=== PATIENT | female | born 1985 | race Asian ===

== ENCOUNTER 2019-09-11 13:59 | Observation (INO) ==
[2019-09-11] MEDS ORDERED: SODIUM CHLORIDE 0.9% 1000ML 1,000 ML IV SCH (14:45)
[2019-09-11 14:50] LABS: iSTAT Creatinine 0.9 mg/dl (0.6-1.3); iSTAT Hemoglobin 6.8 g/dl (12.0-16.0); iSTAT Ionized Calcium 1.17 mmol/l (1.12-1.32); iSTAT Potassium 3.7 mEq/L (3.3-5.0)
[2019-09-11] MEDS ORDERED: SODIUM CHLORIDE 0.9% 250 ML IV PRN ×2 (14:58→15:35)
--- NOTE | 2019-09-11 15:07 | Emergency Department Note ---
ED Provider Note CHIEF COMPLAINT: Fatigue, lightheaded, low hemoglobin HISTORY OF PRESENTING ILLNESS: This is a 34-year-old female with past medical history significant for endometrial polyps and fibroids, PCOS, and abnormal vaginal bleeding, who presents to the emergency department with complaint of feeling lightheaded and tired for the past week. She notes that she has been having constant daily vaginal bleeding for the past 2 months, she saw her RISK CONTROL OFFICER for this and was started on Elsa FE on 08/29. She states initially after starting the oral contraceptives her bleeding seemed to increase, but it has slowed down over the past several days and she is only using 1-2 pads a day. She denies any heavy bleeding or passing large clots. She denies any abdominal pain or cramping. She notes that she had her hemoglobin checked at the end of July and it was 8.5, today she had her level checked at [facility] and it was 5.8, which has dropped over the past 3 weeks. She denies any shortness of breath or chest pain, palpitations, headache, or syncope. She has not had a blood transfusion before. She does not believe she is . She denies any blood thinner medications or history of bleeding disorders. REVIEW OF SYSTEMS: A complete 10 point review of systems was reviewed with the patient with pertinent positives and negatives as per history of present illness. All else were negative. PAST MEDICAL HISTORY: PCOS, uterine fibroids, endometrial polyps, D&C SOCIAL HISTORY: Lives at home, she denies tobacco use ALLERGIES: No known allergies PHYSICAL EXAM: CONSTITUTIONAL: Pleasant and cooperative. Nontoxic-appearing and in no acute distress. Pale appearing and mildly dehydrated. HEENT: Normocephalic, atraumatic. PERRL, EOMI, pale conjunctiva. Pharynx normal. Tacky mucous membranes. NECK: Supple, full active range of motion without discomfort. RESPIRATORY: Clear to auscultation bilaterally with no wheezing, crackles, rhonchi or stridor. Equal expansion bilaterally. CARDIOVASCULAR: Regular rate and rhythm with no murmurs, rubs or gallops. Normal peripheral perfusion, 2+ distal pulses in all 4 extremities. No pitting edema. GASTROINTESTINAL: Soft, nontender, nondistended. No palpable masses or HSM. Bowel sounds present in all quadrants. MUSCULOSKELETAL: Full range of motion of all joints without discomfort. INTEGUMENTARY: No rash or other significant dermatologic conditions noted. NEUROLOGIC: Alert and oriented X 4 with normal affect. Normal strength and sensation in all 4 extremities. Normal speech. Normal gait observed. ED COURSE AND MEDICAL DECISION MAKING: CC: Patient presenting with complaint of fatigue, lightheaded, low hemoglobin DIFFERENTIAL DIAGNOSIS: Includes, but not limited to acute anemia, dehydration, electrolyte abnormality, abnormal vaginal bleeding, among others. INTERPRETATION OF LABS: No leukocytosis, acute anemia, normal platelets, no significant electrolyte abnormalities, normal renal function, normal liver enzymes. Serum negative. Coagulation factors within normal limits. UA positive for blood, no infection. Blood type O+. MEDICATION RECONCILIATION: I attest that I have personally reviewed the patient's current medication list. INITIAL VITAL SIGNS REVIEW: I reviewed the patient's initial vital signs and interpret them as follows: T: Afebrile; BP: Normotensive; HR: Mildly tachycardic; RR: Within normal limits; Pulse Ox: Within normal limits on room air. Blood pressure screening: The patient was found to have normal blood pressure on screening and does not require follow-up for repeat blood pressure check. MDM SUMMARY: Patient was evaluated at bedside, history and physical exam performed. Patient is alert and oriented, in no acute distress, resting calmly in stretcher. She is nontoxic-appearing and afebrile, but does appear pale and mildly dehydrated. No abdominal tenderness to palpation. She reports that her vaginal bleeding has slowed down significantly, I did not feel that a pelvic exam is necessary at this time. Orders were placed at bedside for labs including CBC, CMP, coagulation factors, serum , type and screen to evaluate for anemia. Patient discussed with Dr. Noriega, who agrees with my assessment, plan, and disposition. Labs reviewed as above, hemoglobin is notably low at 6.0. She is not . I spoke on the phone with Dr. Townsend, RISK CONTROL OFFICER, who agrees to bring the patient into the hospital for her blood transfusions and requested crossmatch for 2 units, this was ordered. Blood transfusion consent was performed and signed by the patient, placed on the patient's chart. Patient reassessed multiple times throughout ED stay, she has remained hemodynamically stable and afebrile. The patient was updated on all results and plan for stay in the hospital for blood transfusion, she verbalized understanding and was agreeable to this plan. The patient was stable at time of admission. The chart was completed utilizing [employer] Speech voice recognition software. Grammatical errors, random word insertions, pronoun errors, and incomplete sentences are an occasional consequence of this system due to software limitations, ambient noise, and hardware issues. Any formal questions or concerns about the content, text, or information contained within the body of this dictation should be directly addressed to the nurse practitioner for clarification. Impression & Plan Symptomatic anemia, History of irregular menstrual cycles, Dysfunctional ut erine bleeding Past Med/Surg History Medical History (Updated 09/11/19 @ 22:36 by YAMILEX Sexton) History of chicken pox History of torn meniscus of left knee Hypothyroidism Menorrhagia Symptomatic anemia (Acute) Surgical History (Updated 08/29/19 @ 11:18 by Edie Palacios) History of hysterosalpingogram S/P dilation and curettage S/P wisdom tooth extraction Family History (Updated 08/29/19 @ 11:18 by Edie Palacios) Aunt Breast cancer maternal aunt Social History (Updated 08/29/19 @ 11:17 by Edie Palacios) Preferred Language: Bulgarian Communication Ability: Effective Solvent 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 Required: No Beliefs That Will Affect Care: None Current Living Situation: Spouse Feels Safe at Home: Yes Smoking Status: Never smoker Second Hand Exposure: No ; Hx Alcohol Use: No Hx Substance Use: No Results & Data Vital Signs Vital Signs - 24 hr 09/11/19 14:02 09/11/19 14:46 09/11/19 15:00 Temperature 36.8 C Temperature Source Oral Pulse Rate 99 H 88 Pulse Rate from SpO2 Sensor 90 Respiratory Rate 16 12 Respiratory Effort / Characteristics Non-Labored Respiratory Depth Normal Blood Pressure 124/62 118/69 Blood Pressure Mean 82 93 Pulse Oximetry 100 99 100 Oxygen Delivery Method Room Air Room Air Room Air Sepsis Recent Fever Within 48 Hours No Sepsis New/Unexplained Change in Mental Status No Sepsis Action Taken by Nursing No Action Required 09/11/19 15:19 09/11/19 15:30 09/11/19 15:31 Temperature Temperature Source Pulse Rate 93 H 90 97 H Pulse Rate from SpO2 Sensor 93 H 87 95 H Respiratory Rate 17 24 24 Respiratory Effort / Characteristics Respiratory Depth Blood Pressure 110/67 Blood Pressure Mean 74 Pulse Oximetry 100 91 95 Oxygen Delivery Method Room Air Room Air Room Air Sepsis Recent Fever Within 48 Hours Sepsis New/Unexplained Change in Mental Status Sepsis Action Taken by Nursing Laboratory Data Result diagrams: 09/11/19 14:28 09/11/19 14:28 Lab Results 09/11/19 09/11/19 09/11/19 Range/Units 14:28 14:28 14:28 WBC 5.62 (4.8-10.8) K/uL RBC 2.93 L (4.2-5.4) M/uL Hgb 6.0 L* (12.0-16.0) g/dL POC Hgb (12.0-16.0) g/dl Hct 20.7 L* (37-47) % POC Hct (37-47) % MCV 70.6 L (80-100) fL MCH 20.5 L (25-34) pg MCHC 29.0 L (32-36) g/dL RDW Std Deviation 48.2 H (36.4-46.3) fL RDW Coeff of Ivet 18.7 H (11.5-14.5) % Plt Count 384 (130-400) K/uL MPV 8.8 (7.4-10.4) fL Immature Gran % (Auto) 0.5 % Neut % (Auto) 67.4 % Lymph % (Auto) 21.4 % Benzie % (Auto) 9.8 % Eos % (Auto) 0.5 % Baso % (Auto) 0.4 % Immature Gran # (Auto) 0.03 H (0.00-0.02) K/uL Neut # (Auto) 3.79 (1.4-6.5) K/uL Lymph # (Auto) 1.20 (1.2-3.4) K/uL Benzie # (Auto) 0.55 (0.11-0.59) K/uL Eos # (Auto) 0.03 (0-0.5) K/uL Baso # (Auto) 0.02 (0-0.2) K/uL Absolute Nucleated RBC 0.08 H (0-0) K/uL Nucleated RBC % (auto) 1.4 % Hypochromasia Present Ovalocytes 1+ PT 9.8 (9.0-12.0) Seconds INR 1.0 (0.9-1.1) APTT 22.0 (21.0-31.0) Seconds PTT Ratio 0.8 POC Sodium (135-144) mEq/L Sodium (136-145) mmol/L POC Potassium (3.3-5.0) mEq/L Potassium (3.5-5.1) mmol/L POC Chloride (101-112) mEq/L Chloride (98-107) mmol/L Carbon Dioxide (21-32) mmol/L POC Total CO2 (24-31) mEq/l Anion Gap (3-11) POC Anion Gap (16-25) mmol/L POC BUN (7-18) mg/dl BUN (7-18) mg/dl Creatinine (0.6-1.2) mg/dl POC Creatinine (0.6-1.3) mg/dl Est Cr Clr Drug Dosing ml/min Est GFR ( Amer) Est GFR (Non-Af Amer) BUN/Creatinine Ratio (10-20) Glucose (70-99) mg/dl POC Glucose (other) (70-99) mg/dl Calcium (8.5-10.1) mg/dl POC Ioniz Calcium Patrick (1.12-1.32) mmol/l Total Bilirubin (0.2-1) mg/dl AST (15-37) U/L ALT (12-78) U/L Alkaline Phosphatase (45-117) U/L Total Protein (6.4-8.2) gm/dl Albumin (3.4-5.0) gm/dl Globulin (2.5-4.0) gm/dl Albumin/Globulin Ratio (0.9-2) HCG, Qual (Negative) Urine Color Urine Appearance (Clear) Urine pH (4.5-7.5) Ur Specific [place] (1.000-1.060) Urine Protein (Negative) Urine Glucose (UA) (Negative) Urine Ketones (Negative) Urine Blood (Negative) Urine Nitrite (Negative) Urine Bilirubin (Negative) Urine Urobilinogen (Negative) Ur Leukocyte Esterase (Negative) Urine RBC (0-4) /hpf Urine WBC (0-5) /hpf Ur Epithelial Cells (0-5) /lpf Urine Bacteria (Negative) Blood Type O Positive Antibody Screen NEGATIVE Crossmatch See Detail 09/11/19 09/11/19 09/11/19 Range/Units 14:28 14:36 15:16 WBC (4.8-10.8) K/uL RBC (4.2-5.4) M/uL Hgb (12.0-16.0) g/dL POC Hgb 6.8 L* (12.0-16.0) g/dl Hct (37-47) % POC Hct 20 L* (37-47) % MCV (80-100) fL MCH (25-34) pg MCHC (32-36) g/dL RDW Std Deviation (36.4-46.3) fL RDW Coeff of Ivet (11.5-14.5) % Plt Count (130-400) K/uL MPV (7.4-10.4) fL Immature Gran % (Auto) % Neut % (Auto) % Lymph % (Auto) % Benzie % (Auto) % Eos % (Auto) % Baso % (Auto) % Immature Gran # (Auto) (0.00-0.02) K/uL Neut # (Auto) (1.4-6.5) K/uL Lymph # (Auto) (1.2-3.4) K/uL Benzie # (Auto) (0.11-0.59) K/uL Eos # (Auto) (0-0.5) K/uL Baso # (Auto) (0-0.2) K/uL Absolute Nucleated RBC (0-0) K/uL Nucleated RBC % (auto) % Hypochromasia Ovalocytes PT (9.0-12.0) Seconds INR (0.9-1.1) APTT (21.0-31.0) Seconds PTT Ratio POC Sodium 138 (135-144) mEq/L Sodium 137 (136-145) mmol/L POC Potassium 3.7 (3.3-5.0) mEq/L Potassium 3.6 (3.5-5.1) mmol/L POC Chloride 103 (101-112) mEq/L Chloride 105 (98-107) mmol/L Carbon Dioxide 25 (21-32) mmol/L POC Total CO2 25 (24-31) mEq/l Anion Gap 8.0 (3-11) POC Anion Gap 15.0 L (16-25) mmol/L POC BUN 10 (7-18) mg/dl BUN 11 (7-18) mg/dl Creatinine 0.90 (0.6-1.2) mg/dl POC Creatinine 0.9 (0.6-1.3) mg/dl Est Cr Clr Drug Dosing 98.2 ml/min Est GFR ( Amer) 98.1 Est GFR (Non-Af Amer) 84.6 BUN/Creatinine Ratio 11.6 (10-20) Glucose 101 H (70-99) mg/dl POC Glucose (other) 105 H (70-99) mg/dl Calcium 8.9 (8.5-10.1) mg/dl POC Ioniz Calcium Patrick 1.17 (1.12-1.32) mmol/l Total Bilirubin 0.3 (0.2-1) mg/dl AST 18 (15-37) U/L ALT 36 (12-78) U/L Alkaline Phosphatase 48 (45-117) U/L Total Protein 8.2 (6.4-8.2) gm/dl Albumin 4.0 (3.4-5.0) gm/dl Globulin 4.2 H (2.5-4.0) gm/dl Albumin/Globulin Ratio 1.0 (0.9-2) HCG, Qual (Negative) Urine Color Yellow Urine Appearance Clear (Clear) Urine pH 6.5 (4.5-7.5) Ur Specific [place] 1.006 (1.000-1.060) Urine Protein Negative (Negative) Urine Glucose (UA) Negative (Negative) Urine Ketones Negative (Negative) Urine Blood 2+ H (Negative) Urine Nitrite Negative (Negative) Urine Bilirubin Negative (Negative) Urine Urobilinogen Negative (Negative) Ur Leukocyte Esterase Negative (Negative) Urine RBC 5-10 H (0-4) /hpf Urine WBC 0-5 (0-5) /hpf Ur Epithelial Cells 0-5 (0-5) /lpf Urine Bacteria 1+ H (Negative) Blood Type Antibody Screen Crossmatch 09/11/19 Range/Units 15:21 WBC (4.8-10.8) K/uL RBC (4.2-5.4) M/uL Hgb (12.0-16.0) g/dL POC Hgb (12.0-16.0) g/dl Hct (37-47) % POC Hct (37-47) % MCV (80-100) fL MCH (25-34) pg MCHC (32-36) g/dL RDW Std Deviation (36.4-46.3) fL RDW Coeff of Ivet (11.5-14.5) % Plt Count (130-400) K/uL MPV (7.4-10.4) fL Immature Gran % (Auto) % Neut % (Auto) % Lymph % (Auto) % Benzie % (Auto) % Eos % (Auto) % Baso % (Auto) % Immature Gran # (Auto) (0.00-0.02) K/uL Neut # (Auto) (1.4-6.5) K/uL Lymph # (Auto) (1.2-3.4) K/uL Benzie # (Auto) (0.11-0.59) K/uL Eos # (Auto) (0-0.5) K/uL Baso # (Auto) (0-0.2) K/uL Absolute Nucleated RBC (0-0) K/uL Nucleated RBC % (auto) % Hypochromasia Ovalocytes PT (9.0-12.0) Seconds INR (0.9-1.1) APTT (21.0-31.0) Seconds PTT Ratio POC Sodium (135-144) mEq/L Sodium (136-145) mmol/L POC Potassium (3.3-5.0) mEq/L Potassium (3.5-5.1) mmol/L POC Chloride (101-112) mEq/L Chloride (98-107) mmol/L Carbon Dioxide (21-32) mmol/L POC Total CO2 (24-31) mEq/l Anion Gap (3-11) POC Anion Gap (16-25) mmol/L POC BUN (7-18) mg/dl BUN (7-18) mg/dl Creatinine (0.6-1.2) mg/dl POC Creatinine (0.6-1.3) mg/dl Est Cr Clr Drug Dosing ml/min Est GFR ( Amer) Est GFR (Non-Af Amer) BUN/Creatinine Ratio (10-20) Glucose (70-99) mg/dl POC Glucose (other) (70-99) mg/dl Calcium (8.5-10.1) mg/dl POC Ioniz Calcium Patrick (1.12-1.32) mmol/l Total Bilirubin (0.2-1) mg/dl AST (15-37) U/L ALT (12-78) U/L Alkaline Phosphatase (45-117) U/L Total Protein (6.4-8.2) gm/dl Albumin (3.4-5.0) gm/dl Globulin (2.5-4.0) gm/dl Albumin/Globulin Ratio (0.9-2) HCG, Qual Negative (Negative) Urine Color Urine Appearance (Clear) Urine pH (4.5-7.5) Ur Specific [place] (1.000-1.060) Urine Protein (Negative) Urine Glucose (UA) (Negative) Urine Ketones (Negative) Urine Blood (Negative) Urine Nitrite (Negative) Urine Bilirubin (Negative) Urine Urobilinogen (Negative) Ur Leukocyte Esterase (Negative) Urine RBC (0-4) /hpf Urine WBC (0-5) /hpf Ur Epithelial Cells (0-5) /lpf Urine Bacteria (Negative) Blood Type Antibody Screen Crossmatch Administered Medications Miscellaneous (Order Awaiting Action) 1 ea N/A QS TRAVON Stop: 10/11/19 17:29 Last Admin: 09/11/19 18:53 Dose: Not Given Documented by: [id number] Discontinued Medications Acetaminophen (Tylenol) 650 mg PO Q4H PRN PRN Reason: Pain or Fever Stop: 09/11/19 23:59 Last Admin: 09/11/19 17:28 Dose: 650 mg Documented by: [id number] Diphenhydramine HCl (Benadryl) 25 mg IV NOW STA Stop: 09/11/19 15:36 Last Admin: 09/11/19 17:31 Dose: 25 mg Documented by: [id number] Sodium Chloride (Nss 1000ml) 1,000 mls @ 999 mls/hr IV .Q1H1M TRAVON Stop: 09/11/19 15:45 Last Infusion: 09/11/19 15:47 Dose: 0 mls/hr Documented by: [id number] Admin: 09/11/19 14:46 Dose: 999 mls/hr Documented by: [id number] Discharge Plan Visit Data *Final* Discharge Date/Time: 09/11/19 17:04 Chief Complaint: Abnormal Labs/Diagnostic Testing Stated Complaint: ANEMIC - ABNORMAL LABS ED Provider: Destinee Noriega ED Midlevel Provider: Radha Sheets Discharge Problem: Symptomatic anemia, History of irregular menstrual cycles, Dysfunctional uterine bleeding Patient Disposition: Admitted As Inpatient Condition: Good Discharge Instructions Interventions: ED Discharge Assessment Last Done: 09/11/19 17:04
[2019-09-11 15:17] LABS: Hematocrit (blood only) 20.7 % (37-47); Mean Corpuscular Hemoglobin 20.5 pg (25-34); Mean Corpuscular Volume 70.6 fL (80-100); Mean Platelet Volume 8.8 fL (7.4-10.4); Nucleated RBC # (auto) 0.08 K/uL (0-0); Nucleated RBC % (auto) 1.4 %; Platelet Count 384 K/uL (130-400); RDW Coefficient of Variation 18.7 % (11.5-14.5); RDW Standard Deviation 48.2 fL (36.4-46.3); Red Blood Count 2.93 M/uL (4.2-5.4); White Blood Count 5.62 K/uL (4.8-10.8)
[2019-09-11 15:22] LABS: BUN Creatinine Ratio 11.6 (10-20); Calcium 8.9 mg/dl (8.5-10.1); Creatinine Clr Calc Pharmacy 98.2 ml/min; Est GFR (African American) 98.1; Est GFR (Non-African American) 84.6; Potassium 3.6 mmol/L (3.5-5.1)
[2019-09-11 15:25] LABS: Bilirubin,Total 0.3 mg/dl (0.2-1); Globulin 4.2 gm/dl (2.5-4.0); Total Protein 8.2 gm/dl (6.4-8.2)
[2019-09-11 15:30] LABS: Partial Thromboplastin Ratio 0.8; Prothrombin Time 9.8 Seconds (9.0-12.0)
[2019-09-11] MEDS ORDERED: DiphenhydrAMINE HCL 50 MG/ML VIAL IV STA (15:35)
[2019-09-11] MEDS ORDERED: ACETAMINOPHEN 325 MG TAB PO PRN (15:35)
[2019-09-11 15:39] LABS: Appearance Urine Clear (Clear); Bilirubin Urine Negative (Negative); Blood Urine 2+ (Negative); Color Urine Yellow; Glucose Urine UA Negative (Negative); Ketones Urine Negative (Negative); Leukocyte Esterase Urine Negative (Negative); Nitrite Urine Negative (Negative); Protein Urine Negative (Negative); Urobilinogen Urine Negative (Negative); pH Urine 6.5 (4.5-7.5)
[2019-09-11 15:44] LABS: Basophils # (auto) 0.02 K/uL (0-0.2); Basophils % (auto) 0.4 %; Eosinophils # (auto) 0.03 K/uL (0-0.5); Eosinophils % (auto) 0.5 %; Hypochromasia Present; Immature Granulocytes # (auto) 0.03 K/uL (0.00-0.02); Immature Granulocytes % (auto) 0.5 %; Lymphocytes % (auto) 21.4 %; Monocytes # (auto) 0.55 K/uL (0.11-0.59); Monocytes % (auto) 9.8 %; Neutrophils # (auto) 3.79 K/uL (1.4-6.5); Neutrophils % (auto) 67.4 %; Ovalocytes 1+
--- NOTE | 2019-09-11 15:46 | History & Physical Report ---
Date of Service September 11, 2019 Assessment & Plan (1) Symptomatic anemia: Source of blood loss (menorrhagia) is successfully being addressed, but patient has acute symptomatic anemia for which we will admit and transfuse 2u pRBC and recheck H&H in the AM for planned discharge home. 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 History of Present Illness Chief Complaint: dizziness Primary Care Provider: Destinee Allen 34yo female presented to [facility] this morning with dizziness, nausea, and lightheadedness. Was checked for POC Hgb, found to be in 5s, sent to ER. On arrival she is hemodynamically stable but symptomatic with dizziness when seated upright, better when resting supine. No CP, SOB. Does have a known ongoing issue with menorrhagia for which she was recently started on JAZMIN, and recent diagnosis if hypothyroidism with TSH >20 for which she started synthroid. VB has decreased significantly to one pad per day, so the source of her blood loss is both known and addressed, but she had already lost enough blood that we now need to transfuse. Patient was verbally reconsented for transfusion; already signed consent with ER staff. Allergies Allergy/AdvReac Type Severity Reaction Status Date / Time No Known Allergies Allergy Verified 09/11/19 14:54 Home Medications Home Medications Medication Instructions Recorded Confirmed Type acetaminophen [Tylenol Extra 500 mg PO Q6H PRN 09/11/19 09/11/19 History Strength] levothyroxine 100 mcg PO QAM 09/11/19 09/11/19 History norethindrone-e.estradiol-iron 1 tab PO HS 09/11/19 09/11/19 History [ ()] Past Med/Surg History Medical History (Updated 09/11/19 @ 15:45 by Miya Townsend MD) History of chicken pox History of torn meniscus of left knee Hypothyroidism Menorrhagia Symptomatic anemia Surgical History (Updated 08/29/19 @ 11:18 by Edie Palacios) History of hysterosalpingogram S/P dilation and curettage S/P wisdom tooth extraction Family History (Updated 08/29/19 @ 11:18 by Edie Palacios) Aunt Breast cancer maternal aunt Social History (Updated 08/29/19 @ 11:17 by Edie Palacios) Feels Safe at Home: Yes Smoking Status: Never smoker Hx Alcohol Use: No Hx Substance Use: No Physical Exam Constitutional: + frail appearing Pale compared to my recent visit with her in office. Supine, and gets dizzy / tachy if tries to rise. Eyes: PERRL, conjunctivae normal, anicteric sclerae ENMT: external ear and nose normal, oropharynx normal Neck: trachea midline, no thyromegaly Respiratory: normal respiratory effort, lungs clear to auscultation Cardiovascular: RRR, no murmur, no edema Musculoskeletal: no cyanosis or clubbing, extremities motor strength 5/5 Psychiatric: A+Ox3, euthymic affect Results & Data Vital Signs (Past 12 Hours) Vital Signs Temp Pulse Resp BP Pulse Ox 09/11/19 15:00 88 12 118/69 100 09/11/19 14:46 99 09/11/19 14:02 98.2 F 99 H 16 124/62 100 Laboratory Results Laboratory Results - last 24 hr 09/11/19 09/11/19 09/11/19 14:28 14:28 14:28 WBC 5.62 RBC 2.93 L Hgb 6.0 L* POC Hgb Hct 20.7 L* POC Hct MCV 70.6 L MCH 20.5 L MCHC 29.0 L RDW Std Deviation 48.2 H RDW Coeff of Ivet 18.7 H Plt Count 384 MPV 8.8 Absolute Nucleated RBC 0.08 H Nucleated RBC % (auto) 1.4 PT 9.8 INR 1.0 APTT 22.0 PTT Ratio 0.8 POC Sodium Sodium POC Potassium Potassium POC Chloride Chloride Carbon Dioxide POC Total CO2 Anion Gap POC Anion Gap POC BUN BUN Creatinine POC Creatinine Est Cr Clr Drug Dosing Est GFR ( Amer) Est GFR (Non-Af Amer) BUN/Creatinine Ratio Glucose POC Glucose (other) Calcium POC Ioniz Calcium Patrick Total Bilirubin AST ALT Alkaline Phosphatase Total Protein Albumin Globulin Albumin/Globulin Ratio HCG, Qual Urine Color Urine Appearance Urine pH Ur Specific [place] Urine Protein Urine Glucose (UA) Urine Ketones Urine Blood Urine Nitrite Urine Bilirubin Urine Urobilinogen Ur Leukocyte Esterase Blood Type Pending Antibody Screen Pending Crossmatch See Detail 09/11/19 09/11/19 09/11/19 14:28 14:36 15:16 WBC RBC Hgb POC Hgb 6.8 L* Hct POC Hct 20 L* MCV MCH MCHC RDW Std Deviation RDW Coeff of Ivet Plt Count MPV Absolute Nucleated RBC Nucleated RBC % (auto) PT INR APTT PTT Ratio POC Sodium 138 Sodium 137 POC Potassium 3.7 Potassium 3.6 POC Chloride 103 Chloride 105 Carbon Dioxide 25 POC Total CO2 25 Anion Gap 8.0 POC Anion Gap 15.0 L POC BUN 10 BUN 11 Creatinine 0.90 POC Creatinine 0.9 Est Cr Clr Drug Dosing 98.2 Est GFR ( Amer) 98.1 Est GFR (Non-Af Amer) 84.6 BUN/Creatinine Ratio 11.6 Glucose 101 H POC Glucose (other) 105 H Calcium 8.9 POC Ioniz Calcium Patrick 1.17 Total Bilirubin 0.3 AST 18 ALT 36 Alkaline Phosphatase 48 Total Protein 8.2 Albumin 4.0 Globulin 4.2 H Albumin/Globulin Ratio 1.0 HCG, Qual Urine Color Pending Urine Appearance Pending Urine pH Pending Ur Specific [place] Pending Urine Protein Pending Urine Glucose (UA) Pending Urine Ketones Pending Urine Blood Pending Urine Nitrite Pending Urine Bilirubin Pending Urine Urobilinogen Pending Ur Leukocyte Esterase Pending Blood Type Antibody Screen Crossmatch 09/11/19 15:21 WBC RBC Hgb POC Hgb Hct POC Hct MCV MCH MCHC RDW Std Deviation RDW Coeff of Ivet Plt Count MPV Absolute Nucleated RBC Nucleated RBC % (auto) PT INR APTT PTT Ratio POC Sodium Sodium POC Potassium Potassium POC Chloride Chloride Carbon Dioxide POC Total CO2 Anion Gap POC Anion Gap POC BUN BUN Creatinine POC Creatinine Est Cr Clr Drug Dosing Est GFR ( Amer) Est GFR (Non-Af Amer) BUN/Creatinine Ratio Glucose POC Glucose (other) Calcium POC Ioniz Calcium Patrick Total Bilirubin AST ALT Alkaline Phosphatase Total Protein Albumin Globulin Albumin/Globulin Ratio HCG, Qual Pending Urine Color Urine Appearance Urine pH Ur Specific [place] Urine Protein Urine Glucose (UA) Urine Ketones Urine Blood Urine Nitrite Urine Bilirubin Urine Urobilinogen Ur Leukocyte Esterase Blood Type Antibody Screen Crossmatch Code Status & VTE Plan VTE Prophylaxis Plan VTE Prophylaxis will be ordered: Yes PG Care Time/CCT Total # of Minutes Spent Total Time Spent with Patient: Total time spent is greater than 50% in coordination of care (as documented) at patient's floor/unit and/or counseling patient:
[2019-09-11 16:33] LABS: Pregnancy Test, Serum Negative (Negative)
[2019-09-11 16:41] LABS: Specific Gravity Urine 1.006 (1.000-1.060)
[2019-09-11 17:01] LABS: WBC Urine 0-5 /hpf (0-5)
[2019-09-11 17:02] LABS: Bacteria Urine 1+ (Negative); Epithelial Cell Urine 0-5 /lpf (0-5)
[2019-09-11] MEDS ORDERED: ACETAMINOPHEN 500 MG TAB PO PRN (17:18)
[2019-09-12] MEDS ORDERED: LEVOTHYROXINE SODIUM 100 MCG TABLET PO SCH (06:30)
[2019-09-12 06:38] LABS: Hematocrit (blood only) 26.3 % (37-47); Hemoglobin 8.1 g/dL (12.0-16.0)
--- NOTE | 2019-09-12 07:15 | Obstetrical Progress Note ---
Date of Service September 12, 2019 Assessment & Plan (1) Symptomatic anemia: Improved s/p 2u pRBC with appropriate hgb rise, will dischage to home with out patient management of hypothyroidsm and DUB to continue per plan. Subjective Looks and feels much better this morning - good color, sitting up, eating, smiling, energetic. No dizziness, no CP, no SOB. Physical Exam Constitutional: WD/WN, vitals as above healthy appearing Eyes: PERRL, conjunctivae normal, anicteric sclerae ENMT: external ear and nose normal, oropharynx normal Neck: trachea midline, no thyromegaly Respiratory: normal respiratory effort, lungs clear to auscultation Cardiovascular: RRR, no murmur, no edema Skin: no rashes, warm and dry Neurologic: patellar DTR's 2+ bilat, sensation intact Psychiatric: A+Ox3, euthymic affect Results & Data Vital Signs (Past 12 Hours) Vital Signs Temp Pulse Pulse Resp BP BP Pulse Ox 09/12/19 03:20 98.4 F 83 18 100/66 98 09/12/19 00:00 98.8 F 93 H 20 110/72 98 09/11/19 23:30 98.6 F 96 H 18 111/75 98 09/11/19 22:30 97.3 F L 90 20 110/73 98 09/11/19 22:00 97.3 F L 91 H 20 101/67 98 09/11/19 21:30 98.6 F 86 19 110/71 98 09/11/19 21:15 98.8 F 90 20 108/69 98 09/11/19 20:30 97.7 F 91 H 20 113/72 99 09/11/19 19:35 99.1 F 93 H 93 H 18 110/71 110/71 100 Laboratory Results Laboratory Results - last 24 hr 09/11/19 09/11/19 09/11/19 14:28 14:28 14:28 WBC 5.62 RBC 2.93 L Hgb 6.0 L* POC Hgb Hct 20.7 L* POC Hct MCV 70.6 L MCH 20.5 L MCHC 29.0 L RDW Std Deviation 48.2 H RDW Coeff of Ivet 18.7 H Plt Count 384 MPV 8.8 Immature Gran % (Auto) 0.5 Neut % (Auto) 67.4 Lymph % (Auto) 21.4 [place] % (Auto) 9.8 Eos % (Auto) 0.5 Baso % (Auto) 0.4 Immature Gran # (Auto) 0.03 H Neut # (Auto) 3.79 Lymph # (Auto) 1.20 [place] # (Auto) 0.55 Eos # (Auto) 0.03 Baso # (Auto) 0.02 Absolute Nucleated RBC 0.08 H Nucleated RBC % (auto) 1.4 Hypochromasia Present Ovalocytes 1+ PT 9.8 INR 1.0 APTT 22.0 PTT Ratio 0.8 POC Sodium Sodium POC Potassium Potassium POC Chloride Chloride Carbon Dioxide POC Total CO2 Anion Gap POC Anion Gap POC BUN BUN Creatinine POC Creatinine Est Cr Clr Drug Dosing Est GFR ( Amer) Est GFR (Non-Af Amer) BUN/Creatinine Ratio Glucose POC Glucose (other) Calcium POC Ioniz Calcium Patrick Total Bilirubin AST ALT Alkaline Phosphatase Total Protein Albumin Globulin Albumin/Globulin Ratio HCG, Qual Urine Color Urine Appearance Urine pH Ur Specific [place] Urine Protein Urine Glucose (UA) Urine Ketones Urine Blood Urine Nitrite Urine Bilirubin Urine Urobilinogen Ur Leukocyte Esterase Urine RBC Urine WBC Ur Epithelial Cells Urine Bacteria Blood Type O Positive Blood Type Recheck Antibody Screen NEGATIVE Crossmatch See Detail 09/11/19 09/11/19 09/11/19 14:28 14:36 15:16 WBC RBC Hgb POC Hgb 6.8 L* Hct POC Hct 20 L* MCV MCH MCHC RDW Std Deviation RDW Coeff of Ivet Plt Count MPV Immature Gran % (Auto) Neut % (Auto) Lymph % (Auto) [place] % (Auto) Eos % (Auto) Baso % (Auto) Immature Gran # (Auto) Neut # (Auto) Lymph # (Auto) [place] # (Auto) Eos # (Auto) Baso # (Auto) Absolute Nucleated RBC Nucleated RBC % (auto) Hypochromasia Ovalocytes PT INR APTT PTT Ratio POC Sodium 138 Sodium 137 POC Potassium 3.7 Potassium 3.6 POC Chloride 103 Chloride 105 Carbon Dioxide 25 POC Total CO2 25 Anion Gap 8.0 POC Anion Gap 15.0 L POC BUN 10 BUN 11 Creatinine 0.90 POC Creatinine 0.9 Est Cr Clr Drug Dosing 98.2 Est GFR ( Amer) 98.1 Est GFR (Non-Af Amer) 84.6 BUN/Creatinine Ratio 11.6 Glucose 101 H POC Glucose (other) 105 H Calcium 8.9 POC Ioniz Calcium Patrick 1.17 Total Bilirubin 0.3 AST 18 ALT 36 Alkaline Phosphatase 48 Total Protein 8.2 Albumin 4.0 Globulin 4.2 H Albumin/Globulin Ratio 1.0 HCG, Qual Urine Color Yellow Urine Appearance Clear Urine pH 6.5 Ur Specific [place] 1.006 Urine Protein Negative Urine Glucose (UA) Negative Urine Ketones Negative Urine Blood 2+ H Urine Nitrite Negative Urine Bilirubin Negative Urine Urobilinogen Negative Ur Leukocyte Esterase Negative Urine RBC 5-10 H Urine WBC 0-5 Ur Epithelial Cells 0-5 Urine Bacteria 1+ H Blood Type Blood Type Recheck Antibody Screen Crossmatch 09/11/19 09/11/19 09/12/19 15:21 15:52 06:11 WBC RBC Hgb 8.1 L POC Hgb Hct 26.3 L POC Hct MCV MCH MCHC RDW Std Deviation RDW Coeff of Ivet Plt Count MPV Immature Gran % (Auto) Neut % (Auto) Lymph % (Auto) [place] % (Auto) Eos % (Auto) Baso % (Auto) Immature Gran # (Auto) Neut # (Auto) Lymph # (Auto) [place] # (Auto) Eos # (Auto) Baso # (Auto) Absolute Nucleated RBC Nucleated RBC % (auto) Hypochromasia Ovalocytes PT INR APTT PTT Ratio POC Sodium Sodium POC Potassium Potassium POC Chloride Chloride Carbon Dioxide POC Total CO2 Anion Gap POC Anion Gap POC BUN BUN Creatinine POC Creatinine Est Cr Clr Drug Dosing Est GFR ( Amer) Est GFR (Non-Af Amer) BUN/Creatinine Ratio Glucose POC Glucose (other) Calcium POC Ioniz Calcium Patrick Total Bilirubin AST ALT Alkaline Phosphatase Total Protein Albumin Globulin Albumin/Globulin Ratio HCG, Qual Negative Urine Color Urine Appearance Urine pH Ur Specific [place] Urine Protein Urine Glucose (UA) Urine Ketones Urine Blood Urine Nitrite Urine Bilirubin Urine Urobilinogen Ur Leukocyte Esterase Urine RBC Urine WBC Ur Epithelial Cells Urine Bacteria Blood Type Blood Type Recheck O Positive Antibody Screen Crossmatch PG Care Time/CCT Total # of Minutes Spent Total Time Spent with Patient: Total time spent is greater than 50% in coordination of care (as documented) at patient's floor/unit and/or counseling patient:
[2019-09-12] MEDS ORDERED: INFLUENZA VIRUS QUAD VACCINE 0.5 ML SYR IM ONE (08:00)
[2019-09-12] MEDS ORDERED: INFLUENZA ADMINISTRATION CHARGE ONE (08:00)
--- NOTE | 2019-09-15 15:11 | Discharge Summary ---
Date of Service September 15, 2019 Admission HPI Per Admitting Provider 34yo female with symptomatic anemia due to menorrhagia. Bleeding had already been stopped by JAZMIN and synthroid at the time of admission, but Hgb was critically low and needed correction by transfusion. Discharge Data Consultations 09/11/19 14:58 ED Decision to Admit Stat Hospital Course (1) Symptomatic anemia: Transfused 2u pRBC with appropriate rise in Hgb and symptomatic relief. For outpatient f/u as planned with [facility].
== END 2019-09-12 09:30 | disposition home or self-care (01) ==
LOC: ED 13:59 → 4S2 13:59

== ENCOUNTER 2020-01-31 10:37 | Inpatient (IN) ==
[2020-01-31] MEDS ORDERED: SODIUM CHLORIDE 0.9% 1000ML 1,000 ML IV SCH (11:30)
--- NOTE | 2020-01-31 11:35 | Emergency Department Note ---
Impression & Plan Tachycardia, Weakness, Vaginal bleeding, Dizziness, Anemia ED Provider Note NAME: NAPOLEON SALVADOR AGE: 34 SEX: F : 1985 ARRIVES VIA: Walk-In INFORMANT: [Patient] ED PROVIDER(S): [Chuckie Shafer MD] CHIEF COMPLAINT: Vaginal bleeding HISTORY OF PRESENT ILLNESS: The patient is a 34-year-old female presents with vaginal bleeding for the last 8 days. She initially had some pelvic cramping but this has vanished. The patient was here in this ED 2 days ago and her hemoglobin was in the 7 range. The patient states that since leaving the ED, the amount of bleeding has decreased from 1 pad every 2 hours to 1 pad every 4 hours. Patient states that she has noticed some faster heart rate when she walks and some slight shortness of breath. She has a headache when she stands up that resolves when she sits down. The headache is an 8/10 and mostly on the left side of the head. There has been some nausea, she has been dizzy. No vomiting, no fainting. She has n ot had fever or cough or congestion. She states that lying flat makes her feel like she has a pressure on her chest, this pressure has been present for 2 days, the pressure is mild and resolves with some elevation of her head. The patient is scheduled for a D&C 15 February. She was referred to the ED today by her OB doctor. Of note, she did see OB yesterday in the outpatient office. REVIEW OF SYSTEMS: See HPI for pertinent positives and negatives. A total of ten systems were reviewed and were otherwise negative. PMHx/PSHx: See Below SOCIAL HISTORY: See Below. PHYSICAL EXAM: GENERAL: Patient is in no acute distress. HEENT: No acute trauma, normocephalic atraumatic, mucous membranes moist, no nasal congestion, no scleral icterus. NECK: No stridor, no adenopathy, no meningismus, trachea is midline. LUNGS: Clear to auscultation bilaterally, no wheeze, no rhonchi, breath sounds equal. HEART: Mildly tachycardic, regular rhythm, no murmurs. ABDOMEN: Soft, nontender, bowel sounds positive, no hernias, no peritonitis. EXTREMITIES: No cyanosis or edema, full range of motion of all the joints without pain or difficulty, no signs for acute trauma. NEUROLOGIC: Oriented x 3, no acute motor or sensory deficits, no focal weakness. SKIN: No rash, no jaundice, no diaphoresis. Vaginal: Deferred. DIFFERENTIAL DIAGNOSIS: Etiologies such as threatened AB, miscarriage, ectopic , dysfunction uterine bleeding, bleeding dyscrasia, trauma, infection, as well as others were entertained. EMERGENCY DEPARTMENT COURSE/PROCEDURES: Critical Care Note: I have personally spent greater than 36 minutes of critical care time in the direct management of this patient. This includes bedside care, interpretation of diagnostic studies, and testing, discussion with consultants, patient, and family members, and other required patient management activities. This 36 minutes is in excess of all separately billable procedures. MEDICAL DECISION MAKING: There is no leukocytosis. The patient is anemic with a hemoglobin of 7, this is a drop from just a few days ago. Platelet count was normal. No coagulopathy. No significant electrolyte abnormality or kidney failure. testing was negative. Blood type was O+. Chest film did not show pneumonia or CHF. On my exam, the patient was slightly tachycardic, there was no abdominal/pelvic pain by exam. The patient received IV saline, 1 L. She was ordered for 1 unit of packed red blood cells to be transfused in the ED. Consent was signed. The patient presents with tachycardia, dizziness, weakness. She has vaginal bleeding and is actually scheduled for a D&C in the near future. A pelvic exam was not performed as the cause of her issue is already known. I did speak with [facility], they are going to hospitalize the patient for blood products and potentially do her D&C procedure emergently. She does not seem like she is going to able to wait until February 15. Patient is aware of all her findings, she did consent as noted above to the blood transfusion. She is currently resting comfortably. Past Med/Surg History Medical History Cardiac murmur in August and no further follow-up required Zay's disease (Chronic) History of blood transfusion History of chicken pox History of tear of ACL (anterior cruciate ligament) Left History of torn meniscus of left knee Infertility PCOS (polycystic ovarian syndrome) Symptomatic anemia Tachycardia r/t anemia Uterine myoma Uterine polyp Vaginal bleeding between periods Surgical History History of hysterosalpingogram S/P dilation and curettage S/P wisdom tooth extraction Family History Aunt Breast cancer maternal aunt Mother Hypertension Father Hypertension Denies family history of Ovarian cancer Colorectal cancer Uterine cancer Social History Preferred Language: Togolese Communication Ability: Effective 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 Beliefs That Will Affect Care: None Current Living Situation: Spouse Other Information That Helps Us Care for You: No Feels Safe at Home: Yes Smoking Status: Never smoker Do You Dip or Chew Tobacco: No ; Second Hand Exposure: No ; Hx Alcohol Use: No Hx Substance Use: No Allergies Allergies Allergy/AdvReac Type Severity Reaction Status Date / Time No Known Allergies Allergy Verified 01/31/20 11:45 Home Meds Home Medications Medication Instructions Recorded Confirmed ascorbic acid (vitamin C) [Vitamin 500 mg PO DAILY@1430 01/29/20 01/31/20 C] ferrous sulfate [High Potency Iron] 27 mg PO BID 01/29/20 01/31/20 levothyroxine 125 mcg PO QAM 01/29/20 01/31/20 norethindrone-e.estradiol-iron 1 tab PO HS 01/29/20 01/31/20 [Elsa Fe 1.5/30 (28)] Results & Data (ED) Vital Signs Vital Signs - 24 hr 01/31/20 10:46 01/31/20 11:25 01/31/20 11:27 Temperature 36.8 C Temperature Source Oral Pulse Rate 105 H 102 H 99 H Pulse Rate [Apical] 103 H Pulse Rate from SpO2 Sensor 104 H 98 H Pulse Rhythm [Apical] Regular Pulse Strength [Apical] Normal Respiratory Rate 16 24 24 Respiratory Effort / Characteristics Non-Labored Respiratory Depth Normal Respiratory Pattern Regular Blood Pressure 121/78 117/75 Blood Pressure [Right Arm] 117/75 Blood Pressure Mean 92 89 Blood Pressure Mean [Right Arm] 89 Blood Pressure Position [Right Arm] Lying Pulse Oximetry 99 98 97 Oxygen Delivery Method Room Air Room Air Sepsis Recent Fever Within 48 Hours No Sepsis New/Unexplained Change in Mental Status No Sepsis Action Taken by Nursing No Action Required 01/31/20 11:30 01/31/20 12:00 01/31/20 12:30 Temperature Temperature Source Pulse Rate 95 H 94 H 91 H Pulse Rate [Apical] Pulse Rate from SpO2 Sensor 93 H 94 H 91 H Pulse Rhythm [Apical] Pulse Strength [Apical] Respiratory Rate 19 23 22 Respiratory Effort / Characteristics Respiratory Depth Respiratory Pattern Blood Pressure 115/70 123/72 107/80 Blood Pressure [Right Arm] Blood Pressure Mean 86 77 94 Blood Pressure Mean [Right Arm] Blood Pressure Position [Right Arm] Pulse Oximetry 97 100 100 Oxygen Delivery Method Sepsis Recent Fever Within 48 Hours Sepsis New/Unexplained Change in Mental Status Sepsis Action Taken by Nursing 01/31/20 12:31 Temperature Temperature Source Pulse Rate 97 H Pulse Rate [Apical] Pulse Rate from SpO2 Sensor 97 H Pulse Rhythm [Apical] Pulse Strength [Apical] Respiratory Rate 19 Respiratory Effort / Characteristics Respiratory Depth Respiratory Pattern Blood Pressure Blood Pressure [Right Arm] Blood Pressure Mean Blood Pressure Mean [Right Arm] Blood Pressure Position [Right Arm] Pulse Oximetry 100 Oxygen Delivery Method Sepsis Recent Fever Within 48 Hours Sepsis New/Unexplained Change in Mental Status Sepsis Action Taken by [facility] Medications Current Medication List: was personally reviewed by me Laboratory Data Attestation: I reviewed the patient's lab results. Result diagrams: 01/31/20 11:41 01/31/20 11:41 Lab Results 01/31/20 01/31/20 01/31/20 Range/Units 11:41 11:41 11:41 WBC (4.8-10.8) K/uL RBC (4.2-5.4) M/uL Hgb (12.0-16.0) g/dL Hct (37-47) % MCV (80-100) fL MCH (25-34) pg MCHC (32-36) g/dL RDW Std Deviation (36.4-46.3) fL RDW Coeff of Ivet (11.5-14.5) % Plt Count (130-400) K/uL MPV (7.4-10.4) fL Absolute Nucleated RBC (0-0) K/uL Nucleated RBC % (auto) % PT 10.2 (9.0-12.0) Seconds INR 1.0 (0.9-1.1) APTT 23.2 (21.0-31.0) Seconds PTT Ratio 0.8 Sodium 138 (136-145) mmol/L Potassium 3.9 (3.5-5.1) mmol/L Chloride 109 H (98-107) mmol/L Carbon Dioxide 23 (21-32) mmol/L Anion Gap 6.0 (3-11) BUN 6 L (7-18) mg/dl Creatinine 0.69 (0.6-1.2) mg/dl Est Cr Clr Drug Dosing 125.6 ml/min Est GFR ( Amer) 133.5 Est GFR (Non-Af Amer) 115.2 BUN/Creatinine Ratio 8.2 L (10-20) Glucose 96 (70-99) mg/dl Calcium 8.3 L (8.5-10.1) mg/dl HCG, Qual (Negative) Blood Type O Positive Antibody Screen NEGATIVE Crossmatch See Detail 01/31/20 01/31/20 Range/Units 11:41 11:41 WBC 7.27 (4.8-10.8) K/uL RBC 2.25 L (4.2-5.4) M/uL Hgb 7.0 L (12.0-16.0) g/dL Hct 22.0 L (37-47) % MCV 97.8 (80-100) fL MCH 31.1 (25-34) pg MCHC 31.8 L (32-36) g/dL RDW Std Deviation 47.0 H (36.4-46.3) fL RDW Coeff of Ivet 17.1 H (11.5-14.5) % Plt Count 338 (130-400) K/uL MPV 8.8 (7.4-10.4) fL Absolute Nucleated RBC 0.30 H (0-0) K/uL Nucleated RBC % (auto) 4.2 % PT (9.0-12.0) Seconds INR (0.9-1.1) APTT (21.0-31.0) Seconds PTT Ratio Sodium (136-145) mmol/L Potassium (3.5-5.1) mmol/L Chloride (98-107) mmol/L Carbon Dioxide (21-32) mmol/L Anion Gap (3-11) BUN (7-18) mg/dl Creatinine (0.6-1.2) mg/dl Est Cr Clr Drug Dosing ml/min Est GFR ( Amer) Est GFR (Non-Af Amer) BUN/Creatinine Ratio (10-20) Glucose (70-99) mg/dl Calcium (8.5-10.1) mg/dl HCG, Qual Negative (Negative) Blood Type Antibody Screen Crossmatch Administered Medications Acetaminophen (Tylenol) 650 mg PO Q4H PRN PRN Reason: Pain or Fever Stop: 03/01/20 12:37 Last Admin: 01/31/20 14:27 Dose: 650 mg Documented by: [id number] Discontinued Medications Sodium Chloride (Nss 1000ml) 1,000 mls @ 999 mls/hr IV .Q1H1M TRAVON Stop: 01/31/20 12:30 Last Infusion: 01/31/20 12:48 Dose: 0 mls/hr Documented by: [id number] Admin: 01/31/20 11:48 Dose: 999 mls/hr Documented by: [id number] Imaging Data Radiologist's Impression: XR chest 1V portable CLINICAL HISTORY: 34 years-old Female presenting with sob, cp. TECHNIQUE: Portable upright AP view of the chest was obtained. COMPARISON: None. FINDINGS: Cardiomediastinal silhouette normal. No focal opacity. No large effusion or pneumothorax. Osseous structures normal. Upper abdomen normal. IMPRESSION: 1. No acute cardiopulmonary disease. Blood Pressure Blood Pressure Findings: Normal blood pressure Discharge Plan Visit Data *Final* Discharge Date/Time: 01/31/20 13:58 Chief Complaint: Vaginal Bleeding Stated Complaint: VAGINAL BLEEDING,HEART RACING,HEADACHE ED Provider: Chuckie Shafer Discharge Problem: Tachycardia, Weakness, Vaginal bleeding, Dizziness, Anemia Patient Disposition: Admitted As Inpatient Condition: Fair Discharge Instructions Interventions: ED Discharge Assessment Last Done: 01/31/20 13:58 Discharge Problem: Anemia Qualifiers: Anemia type: unspecified type Qualified Code(s): D64.9 - Anemia, unspecified
[2020-01-31 11:53] LABS: Mean Corpuscular Hemoglobin 31.1 pg (25-34); Mean Corpuscular Hgb Conc 31.8 g/dL (32-36); Mean Corpuscular Volume 97.8 fL (80-100); Mean Platelet Volume 8.8 fL (7.4-10.4); Nucleated RBC % (auto) 4.2 %; Platelet Count 338 K/uL (130-400); RDW Coefficient of Variation 17.1 % (11.5-14.5); Red Blood Count 2.25 M/uL (4.2-5.4); White Blood Count 7.27 K/uL (4.8-10.8)
--- NOTE | 2020-01-31 12:05 | XRay Report ---
XR chest 1V portable CLINICAL HISTORY: 34 years-old Female presenting with sob, cp. TECHNIQUE: Portable upright AP view of the chest was obtained. COMPARISON: None. FINDINGS: Cardiomediastinal silhouette normal. No focal opacity. No large effusion or pneumothorax. Osseous str uctures normal. Upper abdomen normal. IMPRESSION: 1. No acute cardiopulmonary disease. ACT 112: Negative or not required by law. Electronically signed by: Raghu Mg M.D. 01/31/2020 12:04 PM
[2020-01-31 12:08] LABS: Pregnancy Test, Serum Negative (Negative)
[2020-01-31 12:09] LABS: BUN Creatinine Ratio 8.2 (10-20); Calcium 8.3 mg/dl (8.5-10.1); Creatinine Clr Calc Pharmacy 125.6 ml/min; Est GFR (African American) 133.5; Est GFR (Non-African American) 115.2; Potassium 3.9 mmol/L (3.5-5.1)
[2020-01-31 12:10] LABS: Partial Thromboplastin Ratio 0.8; Partial Thromboplastin Time 23.2 Seconds (21.0-31.0); Prothrombin Time 10.2 Seconds (9.0-12.0)
[2020-01-31] MEDS ORDERED: SODIUM CHLORIDE 0.9% 250 ML IV PRN ×2 (12:31→17:35)
[2020-01-31] MEDS ORDERED: ACETAMINOPHEN 325 MG TAB PO PRN (12:38)
--- NOTE | 2020-01-31 12:45 | Communication Note ---
Date of Service: January 31, 2020 Patient well known to myself, discussed with Dr. Chuckie Shafer of ER. She presented to ER for the second time this week with worsening symptoms of acute blood loss anemia, and drop in Hgb from 7.6 to 7 is noted along with tachycardia. She will be directly admitted to my service now, and plan is for 2u pRBC to be transfused (order to be placed / transfusion begun in ER per Dr. Shafer). We will check a f/u H&H and start NPO at midnight, then do the D&C tomorrow instead of next week as previously scheduled. This is not Priskmiles's first blood transfusion, and she is failing outpatient management with hormonal manipulation. It is evident that she cannot wait any longer and is in need of the procedure to prevent further use of blood bank materials and/or risking morbidity or mortality.
--- NOTE | 2020-01-31 16:38 | History & Physical Report ---
Date of Service January 31, 2020 Assessment & Plan (1) Uterine polyp: Emergency D&C Hysteroscopy for tomorrow. This patient has multiple admissions for transfusion and is failing outpatient management of menorrhagia. She needs an emergent procedure to stop her bleeding and avoid morbidity / mo rtality. Procedure moved from 02/15 to 01/31. She will be NPO after midnight for this purpose. (2) Acute blood loss anemia: Blood loss is slowed, but not stopped, by the use of COCs. She continues on these however the ultimate solution to her bleeding will involve tomorrow's procedure. For now she is being managed with 2u pRBC transfusion to improve her Hgb and resolve her tachycardia / orthostasis. History of Present Illness Chief Complaint: Tachycardia, fatigue Primary Care Provider: Destinee Allen 34yo patient known to me for menorrhagia. She has PCOS now managed with COCs, Hypothyroidism now managed with levothyroxine, and uterine polyps for which a D&C was scheduled on 02/15. However the patient is now presenting for the second time with symptomatic anemia due to ongoing uterine blood loss, and it is evident she cannot wait until 02/15 for her scheduled procedure. She is admitted now for 2u pRBC and for a planned emergency D&C tomorrow to hopefully stop her bleeding. Feeling improved already on the partial transfusion she has already received. Allergies Allergy/AdvReac Type Severity Reaction Status Date / Time No Known Allergies Allergy Verified 01/31/20 11:45 Home Medications Home Medications Medication Instructions Recorded Confirmed Type ascorbic acid (vitamin C) [Vitamin 500 mg PO DAILY@1430 01/29/20 01/31/20 History C] ferrous sulfate [High Potency Iron] 27 mg PO BID 01/29/20 01/31/20 History levothyroxine 125 mcg PO QAM 01/29/20 01/31/20 History norethindrone-e.estradiol-iron 1 tab PO HS 01/29/20 01/31/20 History [Elsa Fe 1.530 (28)] Patient History Medical History Cardiac murmur in August and no further follow-up required Zay's disease (Chronic) History of blood transfusion History of chicken pox History of tear of ACL (anterior cruciate ligament) Left History of torn meniscus of left knee Infertility PCOS (polycystic ovarian syndrome) Symptomatic anemia Tachycardia r/t anemia Uterine myoma Uterine polyp Vaginal bleeding between periods Surgical History History of hysterosalpingogram S/P dilation and curettage S/P wisdom tooth extraction Family History Aunt Breast cancer maternal aunt Mother Hypertension Father Hypertension Denies family history of Ovarian cancer Colorectal cancer Uterine cancer Social History Preferred Language: German Communication Ability: Effective 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 Beliefs That Will Affect Care: None Current Living Situation: Spouse Other Information That Helps Us Care for You: No Feels Safe at Home: Yes Smoking Status: Never smoker Do You Dip or Chew Tobacco: No ; Second Hand Exposure: No ; Hx Alcohol Use: No Hx Substance Use: No Physical Exam Constitutional: WD/WN, vitals as above Eyes: PERRL, conjunctivae normal, anicteric sclerae ENMT: external ear and nose normal, oropharynx normal Neck: trachea midline, no thyromegaly Respiratory: normal respiratory effort and able to speak in complete sentence s; no respiratory distress, no labored breathing and does not use accessory muscles Cardiovascular: Rate/Rhythm: regular rate and regular rhythm Extremities: normal capillary refill; no pedal edema Gastrointestinal (Abdomen): Inspection/Auscultation: abdomen normal to inspection; abdomen not distended Percussion/Palpation: abdomen soft; abdomen nontender, no hernia and no abdominal mass Rectal Exam: normal visual inspection of rectum; no hemorrhoids Musculoskeletal: no cyanosis or clubbing, extremities motor strength 5/5 Skin: no rashes, warm and dry Neurologic: normal touch/pain/proprioception Speech / Cognition: normal speech Motor/Sensory: normal movement Psychiatric: Orientation: alert and oriented x 3 Apperance: appropriately groomed and appeared stated age Eye Contact: good eye contact Motor Behavior: no abnormal motor movements Speech: normal rate/rhythm/volume of speech Affect: euthymic affect Lymphatic: no axillary lymphadenopathy and no inguinal lymphadenopathy Results & Data Vital Signs (Past 12 Hours) Vital Signs Temp Pulse Pulse Resp BP BP BP 01/31/20 16:02 98.2 F 94 H 18 117/69 01/31/20 15:05 98.2 F 102 H 20 106/74 01/31/20 14:35 97.9 F 94 H 18 116/77 01/31/20 14:03 98.1 F 92 H 92 H 18 107/72 107/72 01/31/20 13:48 98.6 F 91 H 15 114/78 01/31/20 13:33 98.1 F 95 H 18 112/7 L 01/31/20 13:00 93 H 18 104/61 01/31/20 12:31 97 H 19 01/31/20 12:30 91 H 22 107/80 01/31/20 12:00 94 H 23 123/72 01/31/20 11:30 95 H 19 115/70 01/31/20 11:27 99 H 24 01/31/20 11:25 102 H 103 H 24 117/75 117/75 01/31/20 10:46 98.2 F 105 H 16 121/78 Pulse Ox 01/31/20 16:02 100 01/31/20 15:05 100 01/31/20 14:35 98 01/31/20 14:03 100 01/31/20 13:48 01/31/20 13:33 99 01/31/20 13:00 100 01/31/20 12:31 100 01/31/20 12:30 100 01/31/20 12:00 100 01/31/20 11:30 97 01/31/20 11:27 97 01/31/20 11:25 98 01/31/20 10:46 99 Code Status & VTE Plan VTE Prophylaxis Plan VTE Prophylaxis will be ordered: Yes Coding Level of Care Code 15691 Initial Inpt Care Lvl 3 Diagnoses Uterine polyp N84.0 Acute blood loss anemia D62
[2020-01-31] MEDS: ORAL CONTRACEPTIVE: ORDER AWAITING ACTION SCH (21:47)
[2020-01-31] MEDS: SODIUM CHLORIDE 0.9% 1000ML 1,000 ML IV SCH (23:29)
[2020-02-01] MEDS: ORAL CONTRACEPTIVE: ORDER AWAITING ACTION SCH
[2020-02-01 00:24] LABS: Hematocrit (blood only) 30.1 % (37-47); Hemoglobin 9.6 g/dL (12.0-16.0)
[2020-02-01] MEDS ORDERED: SODIUM CHLORIDE 0.9% 1000ML 1,000 ML IV SCH (06:00)
[2020-02-01] MEDS ORDERED: LEVOTHYROXINE SODIUM 125 MCG TABLET PO SCH (06:30)
[2020-02-01] MEDS: SODIUM CHLORIDE 0.9% 1000ML 1,000 ML IV SCH (07:30)
--- NOTE | 2020-02-01 10:48 | History & Physical Bridge Note ---
Date of Service February 01, 2020 History & Physical Bridge Note I have examined the patient, reviewed the History & Physical and in the interval since the performance of the History & Physical I have noted the following changes of clinical significance: no changes noted
--- NOTE | 2020-02-01 10:57 | Anesthesiology Consultation ---
Date of Service February 01, 2020 Assessment & Plan (1) Encounter for pre-operative examination: Chart Review Chart Review: Acceptable Risk for Surgery Consults Requested none ASA ASA2 Proposed Anesthesia Anesthesia Type: General Risk / Benefits Reviewed With: PT / POA / Parent / Guardian, Accepts Plan and Informed Consent Obtained History Surgery Operation Date: 02/01/20 11:35 Proposed Procedures p Dilation and Curettage, - Miya Townsend MD s Hysteroscopy, Possible Polypectomy - Miya Townsend MD Height/Weight Height: 5 ft 6 in Weight: 83.461 kg Allergies Allergy/AdvReac Type Severity Reaction Status Date / Time No Known Allergies Allergy Verified 01/31/20 11:45 Medications Home Medications Medication Instructions Recorded Confirmed Last Taken High Potency Iron 27 mg PO BID 01/29/20 01/31/20 01/28/20 ascorbic acid (vitamin C) [Vitamin 500 mg PO DAILY@1430 01/29/20 01/31/20 01/28/20 C] levothyroxine 125 mcg PO QAM 01/29/20 01/31/20 01/31/20 norethindrone-e.estradiol-iron 1 tab PO HS 01/29/20 01/31/20 01/28/20 [Elsa Fe 1.5/30 (28)] Active Medications Generic Name Dose Route Start Last Admin Trade Name Freq PRN Reason Stop Dose Admin Acetaminophen 650 mg 01/31/20 12:38 01/31/20 14:27 Tylenol PO 03/01/20 12:37 650 mg Q4H PRN Administration Pain or Fever Sodium Chloride 1,000 mls @ 125 mls/hr 02/01/20 00:00 02/01/20 07:30 Nss 1000ml IV 03/02/20 00:00 125 mls/hr .Q8H TRAVON Administration Levothyroxine Sodium 125 mcg 02/01/20 06:30 02/01/20 06:06 Synthroid PO 03/02/20 06:29 125 mcg DAILYBB TRAVON Administration Miscellaneous 1 ea 01/31/20 16:00 02/01/20 00:00 Order Awaiting Action N/A 03/01/20 15:59 Not Given QS TRAVON NPO Date Last Intake of Fluids: 01/31/20 Time Last Intake of Fluids: 23:50 Date Last Intake of Solids: 01/31/20 Time Last Intake of Solids: 23:00 Past Medical History Medical History Cardiac murmur in August and no further follow-up required Zay's disease (Chronic) History of blood transfusion History of chicken pox History of tear of ACL (anterior cruciate ligament) Left History of torn meniscus of left knee Infertility PCOS (polycystic ovarian syndrome) Symptomatic anemia Tachycardia r/t anemia Uterine myoma Uterine polyp Vaginal bleeding between periods Exercise / Class Metabolic Activity II 4-5 Yardwork/Stairs/Walk up hill Past Family History Family History Aunt Breast cancer maternal aunt Mother Hypertension Father Hypertension Denies family history of Ovarian cancer Colorectal cancer Uterine cancer Past Surgical History Surgical History History of hysterosalpingogram S/P dilation and curettage S/P wisdom tooth extraction Past Anesthesia History No Hx of Anesthesia Complications and No Family Hx of Anesthesia Complications History of PONV No Hx of PONV and No Hx of Motion Sickness Social History Smoking Status: Never smoker Do You Dip or Chew Tobacco: No Hx Alcohol Use: No Hx Substance Use: No substance use type: does not use Physical Exam Vital Signs Last Vital Signs Temp 98.6 F 02/01/20 12:10 Pulse 107 H 02/01/20 12:10 Resp 20 02/01/20 12:10 BP 133/77 02/01/20 12:10 Pulse Ox 100 02/01/20 12:10 ENMT Mouth: no dentition abnormality Thyromental Distance: > or= 3.5 Finger Breadths Mallampati Class: II Neck normal visual inspection Respiratory normal respiratory effort Auscultation: lungs clear to auscultation bilaterally Cardiovascular Rate/Rhythm: regular rate and regular rhythm Testing Laboratory Results 02/01/20 00:13 01/31/20 11:41 PT 10.2 Seconds (9.0-12.0) 01/31/20 11:41 INR 1.0 (0.9-1.1) 01/31/20 11:41 APTT 23.2 Seconds (21.0-31.0) 01/31/20 11:41 Blood Type O Positive 01/31/20 11:41 Antibody Screen NEGATIVE 01/31/20 11:41 Electrocardiogram Date: 01/29/20 Sinus tachycardia, rate 116 bpm Otherwise normal ECG No previous ECGs available Confirmed by Cy Aponte ([id number]) on 01/29/2020 3:06:48 PM Chest X-Ray Date: 01/31/20 Findings: + NAD
[2020-02-01] MEDS ORDERED: ePHEDrine sulfate 50 MG/ML AMP IV PRN (12:24)
[2020-02-01] MEDS ORDERED: ONDANSETRON INJ 2 MG/ML 2 ML VIAL IV PRN ×2 (12:24→13:45)
[2020-02-01] MEDS ORDERED: LIDOCAINE HCL 2% 2 ML VIAL/AMP(20MG/ML) INFIL ONE (12:24)
[2020-02-01] MEDS ORDERED: ATROPINE SULFATE 0.1 MG/ML 10ML SYR IV PRN (12:24)
[2020-02-01] MEDS ORDERED: PROPOFOL IV EMULSION 10 MG/ML 20 ML VIAL IV ONE (12:24)
[2020-02-01] MEDS ORDERED: fentaNYL citrate 100 MCG/2 ML VIAL ONE ×3 (12:25→14:29)
[2020-02-01] MEDS ORDERED: MIDAZOLAM HCL 1 MG/ML 2ML VIAL ONE (12:25)
[2020-02-01] MEDS ORDERED: ONDANSETRON INJ 2 MG/ML 2 ML VIAL ONE (13:19)
[2020-02-01] MEDS ORDERED: DEXAMETHASONE SOD INJ 4 MG/ML VIAL ONE (13:19)
[2020-02-01] MEDS ORDERED: OXYCODONE/ACETAMINOPHEN 5mg/325mg TAB PO PRN ×2 (13:45)
[2020-02-01] MEDS ORDERED: METOCLOPRAMIDE HCL INJ 5 MG/ML 2 ML VIAL IV PRN (13:45)
[2020-02-01] MEDS ORDERED: IBUPROFEN 600 MG TAB PO PRN (13:45)
--- NOTE | 2020-02-01 13:45 | Operative Report ---
[facility] Post Operative Report Pre & Post Diagnosis Operation Date: 02/01/20 11:35 Pre-Op Diagnosis: VAGINAL BLEEDING, Hypothyroidism, PCOS, Endometrial Polyps, ACUTE BLOOD LOSS ANEMIA Post-Op Diagnosis: As above plus concerning appearance of endometrium. I identified the patient and participated in the time-out.: Yes Procedure Operation Date: 02/01/20 11:35 Actual Procedures p Dilation and Curettage, Hysteroscopy(Not Applicable) - Miya Townsend MD Surgeon Miya Townsend MD Ticketing Agent None Estimated Blood Loss 100 Findings See Below Specimens Endometrial curettings Anesthesia Type General Complications none Disposition Accompanied Patient To Recovery: Yes Disposition: Recovery Room Description of Procedure The patient was placed on the table in dorsal lithotomy with candy cane stirrups, prepped and draped in standard sterile fashion, and a hard time out was taken. Pelvic exam was performed. The bladder was emptied of urine via straight catheterization. Weighted and bird specula were used to visualize the cervix, which was grasped upon its anterior lip with a single tooth tenaculum. The uterus was sounded to 9.5cm. Serial Foy dilators were then used to gently open the cervix until passage of a 5mm hysteroscope was possible. The hysteroscope was placed and the uterine cavity with fallopian tube ostia was visualized. Findings included no defined polyp; instead a diffusely fluffy, papillary, vascular appearance to the endometrium was seen. White fragments of likely calcium were present throughout and a trabeculated, honeycomb-type appearance was present in some areas as well. This papillary vascular tissue was seen to fill nearly the entire cavity. The hysteroscope was withdrawn. A sharp curettage was carried out retrieving significant amounts of endometrium. The scope was then gently replaced and significant tissue was seen to remain in the cavity. A polyp forcep was used to gather some of the larger fragments of endometrium, and a sharp curette was then used again and cry was able to be obtained on all bishop. The scope was replaced, and after significant irrigation and suction due to bleeding from the curetted bishop, the ostia were again identified. The cavity was seen to be curetted well. The procedure was then brought to completion with removal of all instruments. There was noted to be active pulsatile bleeding from one of the tenaculum sites, to which a ring forcep was applied x2 minutes. After this was removed, bleeding promptly resumed. A figure of eight 3-0 vicryl suture was placed to achieve hemostasis. Sponge sticks were used to blot and observe for several minutes to see that there was no active bleeding from either the uterus or the tenaculum site. Finally the specula were removed and transfer of the patient in stable condition to recovery. I attest to the content of the Intraoperative Record and any orders documented therein. Any exceptions are noted below.
[2020-02-01] MEDS: fentaNYL citrate 100 MCG/2 ML VIAL IV PRN ×4 (14:30→14:57)
--- NOTE | 2020-02-01 14:36 | Anesthesiology Progress Note ---
Date of Service February 01, 2020 Anesthesia Post Procedure Vital Signs Vital Signs: Temp Pulse Pulse Pulse Pulse Resp BP 02/01/20 14:30 95 H 18 02/01/20 14:20 93 H 16 02/01/20 14:12 97.2 F L 90 12 02/01/20 12:10 98.6 F 107 H 20 02/01/20 07:56 98.6 F 83 18 02/01/20 04:20 98.4 F 85 15 01/31/20 23:20 98.4 F 76 76 16 117/72 01/31/20 22:17 98.2 F 96 H 16 113/77 01/31/20 21:30 98.4 F 87 16 107/74 01/31/20 20:30 98.2 F 86 16 102/68 01/31/20 19:59 98.6 F 88 97/61 L 01/31/20 19:45 98.4 F 87 16 106/71 01/31/20 19:29 98.4 F 90 16 113/72 01/31/20 17:45 98.2 F 89 18 01/31/20 16:34 98.1 F 102 H 18 103/67 01/31/20 16:02 98.2 F 94 H 18 01/31/20 16:01 98.2 F 94 H 18 117/69 01/31/20 15:05 98.2 F 102 H 20 106/74 BP Pulse Ox 02/01/20 14:30 121/85 98 02/01/20 14:20 104/70 100 02/01/20 14:12 117/100 100 02/01/20 12:10 133/77 100 02/01/20 07:56 108/72 98 02/01/20 04:20 104/67 98 01/31/20 23:20 117/72 100 01/31/20 22:17 99 01/31/20 21:30 100 01/31/20 20:30 98 01/31/20 19:59 100 01/31/20 19:45 98 01/31/20 19:29 100 01/31/20 17:45 105/69 99 01/31/20 16:34 98 01/31/20 16:02 117/69 100 01/31/20 16:01 100 01/31/20 15:05 100 Pain Intensity Bilateral Head: Pain Intensity: 6 Head: Pain Intensity: 6 Transfer of Care Handoff Completed per policy Notes Mental Status: alert / awake / arousable and participated in evaluation Patient Amnestic to Procedure: Yes Nausea / Vomiting: adequately controlled Pain: adequately controlled Airway Patency, RR, SpO2: stable & adequate BP & HR: stable & adequate Hydration State: stable & adequate Anesthetic Complications: no major complications apparent and Pt Satisfied with anesthetic care
--- NOTE | 2020-02-01 15:57 | Communication Note ---
Date of Service: February 01, 2020 Patient returns to 4th floor from PACU. Discussed the procedure, including the findings of a diffusely papillary and abnormal-appearing endometrium. She was made aware that I do not know what exactly to expect when pathology is returned, but that I will call her with results as soon as I can. Her pain is an aching abdominal pain at this time for which she will try percocet now. Vaginal bleeding is light, as expected. Vitals appropriate. Patient can be discharged to home when she has met PACU / phase 2 criteria.
--- NOTE | 2020-02-02 09:35 | Discharge Summary ---
Date of Service February 02, 2020 Admission HPI Per Admitting Provider 34yo patient known to me for menorrhagia. She has PCOS now managed with COCs, Hypothyroidism now managed with levothyroxine, and uterine polyps for which a D&C was scheduled on 02/15. However the patient is now presenting for the second time with symptomatic anemia due to ongoing uterine blood loss, and it is evident she cannot wait until 02/15 for her scheduled procedure. She is admitted now for 2u pRBC and for a planned emergency D&C tomorrow to hopefully stop her bleeding. Feeling improved already on the partial transfusion she has already received. Discharge Data Consultations 01/31/20 17:11 Consult Anesthesiology Routine Procedures Performed Operation Date: 02/01/20 11:35 Actual Procedures p Dilation and Curettage, (Not Applicable) - Miya Townsend MD s Hysteroscopy(Not Applicable) - Miya Townsend MD Hospital Course (1) Menorrhagia: Patient was treated with 2u pRBC for acute blood loss anemia, and a D&C Hysteroscopy to remove thickened endometrium vs polyps as a treatment for her menorrhagia, and to obtain surgical diagnosis. Patient was discharged on POD#0 after her procedure, with adequate pain control and normal vitals, and without symptoms of anemia or orthostasis. She is aware I am concerned about my intraoperative findings and will be expecting a call with pathology results when available. Coding Level of Care Code None Diagnoses Menorrhagia N92.0
--- NOTE | 2020-02-05 12:43 | Coding Query ---
PATHOLOGY To promote full compliance with coding requirements relating to patient care, physician participation is requested in all cases of security incident response specialist uncertainty. Please assist us with the question(s) below: Please review the Pathology report and please document any relevant diagnosis(es) below: Diagnosis(es): Endometrial cancer. Thank you Rayne PAZ
--- NOTE | 2020-02-05 12:56 | Coding Query ---
CODING QUERY To promote full compliance with coding requirements relating to patient care, provider participation is requested in all cases of forest technology professor uncertainty. Please assist us with the question(s) below: Coding Question(s): The op report states "There was noted to be active pulsatile bleeding from one of the tenaculum sites." Could you please clarify the exact body part that was bleeding (ie uterus, cervix, vagina, etc.)? Also please indicate what caused the bleeding (ie laceration, puncture, etc.). Thank you. Physician's Response(s): Tenaculum is placed on the cervix. It creates two puncture sites (always - that's how the tool works). In this case, one of the puncture sites created by the tenaculum had bleeding and required a stitch to control. Thank you Rayne Rollins Principal Diagnosis: "that condition established after study, to be chiefly responsible for occasioning the admission of the patient to the hospital for care." Co-Existing Principal Diagnosis: "when two or more diagnoses equally meet the criteria for principal diagnosis as determined by the circumstances of admission, diagnostic work up, and/or therapy provided, and the Alphabetic Index, Tabular List, or another coding guideline does not provide sequencing direction, any one of the diagnoses may be sequenced first." "When the physician has documented what appears to be a current diagnosis in the body of the record, but has not included the diagnosis in the final diagnostic statement, the physician should be asked whether the diagnosis should be added." (Source Coding [facility] 2 QTR90. p3-4) BRANDI
== END 2020-02-01 18:57 | disposition home or self-care (01) | DRG 744 ==
LOC: ED 10:37 → 4S2 12:38